=== PATIENT | female | born 1965 | race Caucasian/White ===

== ENCOUNTER → 2019-04-15 12:21 | Outpatient (CLI) | payer OTHER, SELFPAY ==
--- NOTE | 2019-04-15 12:27 | CT_ITS ---
PROCEDURE: CT ABDOMEN PELVIS W CON CLINICAL INDICATION: abdominal pain Lower abdominal pain distension and bloating COMPARISON: No exams were available for comparison TECHNIQUE: IV Contrast: 75ML OPTIRAY 350 Oral Contrast none Axial images obtained with sagittal and coronal reformats. All CT scans at the facility use one or more dose reduction, viz: automated exposure control, ma/kV adjustment per patient size (including targeted exams where dose is matched to indication, i.e. head), or iterative reconstruction technique. FINDINGS: Lower thorax: No acute finding ABDOMEN & PELVIS: The liver, gallbladder, spleen, adrenal glands, pancreas, and kidneys have an unremarkable appearance. No intestinal obstruction or free air is evident. The appendix is not clearly identified. The however, there are no secondary signs of appendicitis. There are scattered diverticula throughout the colon. There is mild haziness of the pericolic fat surrounding an inflamed diverticulum along the anterior aspect of the distal descending colon consistent with acute diverticulitis. No abscess or perforation evident. No pelvic mass or abnormal fluid collection apparent. There is a small umbilical hernia which contains fat No acute bony findings IMPRESSION: Acute diverticulitis of the distal descending colon with no evidence of abscess or perforation. Weathers colonic diverticulosis. Dictated by: Zeke Cole MD 04/15/2019 16:42 Electronically signed by Zeke Cole MD in [place] 04/15/2019 16:42
[2019-04-16 13:01] LABS: H. pylori Breath Test Negative (Negative)
== END ==
PROVIDERS: Physician Assistant; PCP Family Medicine; Visit Provider Nurse Practitioner Family
DX: R10.9 Unspecified abdominal pain (principal)
CPT/HCPCS: 74177; 83013; Q9967

== ENCOUNTER → 2019-04-18 13:38 | Outpatient (CLI) | payer OTHER, SELFPAY ==
--- NOTE | 2019-04-18 13:39 | MM_ITS ---
PROCEDURE: MM DIG SCREENING MAMM BI W/CAD Patient Age:53Y CLINICAL INDICATION: Routine Screening Mammogram no hormones, no new complaints. Noncontributory family history COMPARISON: DIG MAMMO BILAT SCREENING from 01/05/2011 DIG MAMMO BILAT SCREENING from 06/18/2013 [facility] DIG MAMM-SCREEN EMILY W/CAD from 02/14/2017 TECHNIQUE: Standard CC and MLO images were obtained. R2 CAD reviewed. FINDINGS: [id number] residual fibroglandular elements. No suspicious calcification. CAD highlights no areas of significant concern in either breast. Right breast. Stable/No significant new findings Left breast: The MLO view appears stable but on today's axillary CC view there is a focal area of density seen laterally towards axillary left breast, CC view. Would strongly favor is merely summation shadow but the focal density does warrants spot views to further evaluate to better exclude any underlying abnormality. Cc and MLO spot views along with a full full breast 90 degree on left suggested. IMPRESSION: Left breast: The area of focal density axillary tail left breast on axillary CC view- is most certainly a benign focal summation shadow.-Very unlikely to be of significance, but warrants additional spot views to further evaluate Right breast. Stable. Follow-up right mammogram 1 year BI-RAD Category: 0 Need Additional Imaging Evaluation FOLLOW-UP: IMM Immediate Follow-up Recommended Additional views left breast (A letter has been sent to the patient regarding results of the study.) Dictated by: Edin Louis MD 04/24/2019 10:16 Electronically signed by Edin Louis MD in [place] 04/24/2019 10:16
== END ==
PROVIDERS: PCP Family Medicine; Visit Provider Nurse Practitioner Obstetrics & Gynecology
DX: Z12.31 Encounter for screening mammogram for malignant neoplasm of breast (principal)
CPT/HCPCS: 77067

== ENCOUNTER → 2019-05-22 13:50 | Outpatient (CLI) | payer OTHER, SELFPAY ==
--- NOTE | 2019-05-22 13:52 | MM_ITS ---
PROCEDURE: MM DIG MAMM DX UNILAT LT CAD CLINICAL INDICATION: Routine Screening Mammogram COMPARISON: DIG MAMMO BILAT SCREENING from 06/18/2013 [facility] DIG MAMM-SCREEN EMILY W/CAD from 02/14/2017 MM DIG SCREENING MAMM BI W/CAD from 04/18/2019 TECHNIQUE: Spot-compression MLO and CC views were obtained along with a 90 degree lateral view FINDINGS: The questionable area of asymmetric density outer quadrant left breast appears to press out on the spot CC view. Spot MLO view shows no abnormality at this site. IMPRESSION: Essentially negative problem solving views with previously noted questionable asymmetric density likely a summation shadow BI-RAD Category: 1 Negative FOLLOW-UP: 1YR 1 Year Follow-up (A letter has been sent to the patient regarding results of the study.) Dictated by: Dr. Cr Galindo MD 05/24/2019 10:[address] Cr Galindo MD in [place] 05/24/2019 10:40
== END ==
PROVIDERS: PCP Family Medicine; Visit Provider Nurse Practitioner Obstetrics & Gynecology
DX: R92.8 Other abnormal and inconclusive findings on diagnostic imaging of breast (principal)
CPT/HCPCS: 77065

== ENCOUNTER → 2019-05-24 12:01 | Outpatient (CLI) | payer OTHER, SELFPAY ==
--- NOTE | 2019-05-24 12:15 | CT_ITS ---
PROCEDURE: CT ABDOMEN PELVIS WO/W CON CLINICAL INDICATION: abdominal pain lower abdominal pain, history of diverticulitis COMPARISON: CT ABDOMEN PELVIS W CON from 04/15/2019 TECHNIQUE: IV Contrast: 75ML OPTIRAY 350 Oral Contrast 20ml Gastroview Axial images obtained with sagittal and coronal reformats. All CT scans at the facility use one or more dose reduction, viz: automated exposure control, ma/kV adjustment per patient size (including targeted exams where dose is matched to indication, i.e. head), or iterative reconstruction technique. FINDINGS: LOWER THORAX: No acute finding ABDOMEN & PELVIS: The liver, spleen, adrenal glands, pancreas, gallbladder, and kidneys have an unremarkable appearance. No renal or ureteral calculi. No evidence of appendicitis. There is diverticulosis of the descending and sigmoid colon. There is moderate thickening of the mid aspect of the sigmoid colon with stranding of the pericolic fat with an inflamed diverticulum noted at this region consistent with acute diverticulitis. No evidence of abscess or perforation. There is a minimal amount of fluid in the pericolic region at this area. There stranding of the pericolic fat. No acute bony findings. IMPRESSION: Acute non complicated diverticulitis of the sigmoid colon Dictated by: Zeke Cole MD 05/24/2019 15:28 Electronically signed by Zeke Cole MD in [place] 05/24/2019 15:28
== END ==
PROVIDERS: PCP Family Medicine; Referring Provider Nurse Practitioner Obstetrics & Gynecology; Visit Provider Internal Medicine
DX: R10.9 Unspecified abdominal pain (principal)
CPT/HCPCS: 74178; Q9967

== ENCOUNTER 2024-10-09 08:14 | Day surgery (SDC) | payer OTHER, SELFPAY ==
[2024-10-09] VITALS (7 sets, daily range): BP systolic 100–127; BP diastolic 58–77; PULSE 60–80; RESP 16–18; TEMP 36.2–36.8; O2SAT 97–100; BMI 25.0
[2024-10-09] MEDS: LACTATED RINGERS 1000ML 1,000 ML 50 ML IV (09:46)
--- NOTE | 2024-10-09 09:55 | P.PNANES_ITS ---
[facility] Disclaimer: The information contained in this section may have been updated after the patient was seen, as this information can be updated by other users. Medical History History of diverticulitis No significant medical problems Surgical History H/O LEEP History of History of tonsillectomy Family History Other Family history of diabetes mellitus type II Family history of hypertension Thyroid cancer Social History (Updated 10/09/24 @ 09:35 by Verona Javier RN) Smoking Status: Current every day smoker alcohol intake: current alcohol intake frequency: holidays/special occasions only substance use type: denies use current occupational status: employed Travel in the last 8 weeks: None caffeine: Yes Have you lived/traveled outside [place] in past 30 days?: No Contact w/someone who lives/traveled outside [place] past 30 days?: No Exposure to someone with infectious disease in past 14 days?: No Do you have a fever (greater than 100.4 F or 38 C)?: No Have you tested positive for COVID-19: No Exposed to someone with COVID-19 in past 14 days?: No Do you have a sore throat?: No Do you have a cough?: No Do you have any weakness?: No Are you experiencing any nausea/vomitting?: No Do you have any diarrhea?: No Are you experiencing any unusual bleeding?: No Do you have any muscle aches/pain?: No Do you have any abdominal pain?: No Are you experiencing loss of taste or smell?: No [facility] Anesthesia Checklist Patient Identification Patient Identification: Arm Band Structural Data Admitted From: Home Planned Operative Procedure/s: Colonoscopy Consent for Planned Operative Procedure(s) Verified: Yes Verified Documents: Surgical Consent and History and Physical NPO Status Verified Time NPO: 05:45 (finished prep) Additional verifications Anesthesia Reactions: Yes (n/v) Airway Assessment Mallampati Score:: Class II C-Spine Mobility Assessed: Yes TMJ Mobility Assessed: Yes Dentition: Good Dentition Neurological Assessment Level of Consciousness: Awake, Alert and Appropriate Anesthesia Plan Anesthesia Risk discussed: Yes Anesthesia Plan: Verified ASA Class: II Anesthesia Type: MAC
--- NOTE | 2024-10-09 10:11 | P.HP_ITS ---
History of Present Illness *Admission Date: 10/09/24 *Reason for visit:: Surveillance colonoscopy *History of present illness: Mrs. Flaherty is a 58-year-old female who is here for surveillance colonoscopy secondary to a personal history of adenomatous colon polyps. The examination is deemed medically necessary for surveillance colonoscopy. The patient has been seen, interviewed and examined prior to the procedure by both myself and the anesthesia provider. [facility] Disclaimer: The information contained in this section may have been updated after the patient was seen, as this information can be updated by other users. Medical History (Updated 10/09/24 @ 10:12 by Oscar Justice II, MD) History of diverticulitis No significant medical problems Surgical History H/O LEEP History of History of tonsillectomy Family History Other Family history of diabetes mellitus type II Family history of hypertension Thyroid cancer Social History (Updated 10/09/24 @ 09:35 by Verona Javier RN) Smoking Status: Current every day smoker alcohol intake: current alcohol intake frequency: holidays/special occasions only substance use type: denies use current occupational status: employed Travel in the last 8 weeks: None caffeine: Yes Have you lived/traveled outside [place] in past 30 days?: No Contact w/someone who lives/traveled outside [place] past 30 days?: No Exposure to someone with infectious disease in past 14 days?: No Do you have a fever (greater than 100.4 F or 38 C)?: No Have you tested positive for COVID-19: No Exposed to someone with COVID-19 in past 14 days?: No Do you have a sore throat?: No Do you have a cough?: No Do you have any weakness?: No Are you experiencing any nausea/vomitting?: No Do you have any diarrhea?: No Are you experiencing any unusual bleeding?: No Do you have any muscle aches/pain?: No Do you have any abdominal pain?: No Are you experiencing loss of taste or smell?: No Other Medical History Have you received the Pneumonia Vaccine: No Review of Systems Review of Systems Review of systems (narrative): Negative *Cardiovascular Comments: Negative *Gastrointestinal Comments: Negative *Genitourinary Comments: Negative *Musculoskeletal Comments: Negative *Neurologic Comments: Negative Meds Home Medications and Allergies Home Medications ?Medication ?Instructions ?Recorded ?Confirmed ?Type sodium,potassium,mag sulfates 17.5 See Rx Instructions PO .COMPLEX 09/25/24 Rx gram-3.13 gram-1.6 gram oral soln #354 mL (Suprep Bowel Prep Kit) New Prescriptions to Start Prescriptions: Allergies Allergy/AdvReac Type Severity Reaction Status Date / Time No Known Allergies Allergy Verified 10/09/24 09:30 Exam Data for Last 24 hours Vital signs and Labs for Last 24 Hours: Temp Pulse Resp BP Pulse Ox O2 Del Method 98.2 F 75 18 122/67 99 Room Air 10/09/24 09:29 10/09/24 09:29 10/09/24 09:29 10/09/24 09:29 10/09/24 09:29 10/09/24 09:29 I & O for Last 24 hours: Intake & Output 10/06/24 10/07/24 10/08/24 10/09/24 23:59 23:59 23:59 23:59 Weight 150 lb *Routine HEENT Exam Head: Present normocephalic Eye: Present EOMI and PERRL ENT: Present mucous membranes moist *Routine Neck Exam Neck: Present supple *Routine Respiratory Exam Respiratory: Present CTA bilaterally *Routine Cardiovascular Exam Cardiovascular: Present RRR *Routine Abdominal Exam Abdominal: Present soft and normoactive bowel sounds; Absent tenderness *Routine Rectal Exam Rectal:: deferred *Routine Genitalia Exam Genitalia:: deferred *Routine Extremities Exam Extremities: Absent cyanosis, clubbing or edema *Routine Skin Exam Skin: Present warm; Absent rash *Routine Neurological Exam Neurological: Present alert and oriented X3 Assessment and Plan *Assessment and plan (1) Personal history of adenomatous and serrated colon polyps: Status: Acute Category: Medical Code(s): Z86.0101 - Personal history of adenomatous and serrated colon polyps Plan A/P: 1. Personal history of adenomatous colon polyps is the preprocedural diagnosis. The patient will be anesthetized/sedated using MAC sedation. The patient has been seen and examined. Cardiac and lung assessment prior to the examination is stable. Proceed with planned surveillance colonoscopy.
--- NOTE | 2024-10-09 10:12 | HMH.PROCNOTE ---
[facility] Procedure Note Date: 10/09/24 Time: 10:20 Procedure Note:: Colonoscopy Procedure Report: Colonoscopy with cold snare polypectomy Endoscopist: Oscar Justice II, MD Referring physician: Sukhwinder Hdez MD Date of Procedure: October 09, 2024 Equipment: Olympus 190 variable stiffness pediatric colonoscope Sedation: MAC sedation Indication: Mrs. Flaherty is a 58-year-old female who is here for follow-up surveillance colonoscopy secondary to a personal history of adenomatous colon polyps. The patient did have a colonoscopy in 2008 or 2009 in [facility] and had a single polyp (tubular adenoma) removed. Her last colonoscopy with [facility] in May 2018 revealed 2 polyps (tubular adenoma x 1/small serrated adenoma x 1) which were removed. The patient reports no abdominal pain, weight loss, change in her bowel habits or rectal bleeding. She reports no family history of colon cancer. At the time of her last colonoscopy, she did have left-sided diverticulosis. 1 or 2 years ago, she did have a bout of acute diverticulitis. She does state that her father had colon polyps. Procedure: Prior to the procedure, a history and physical exam was performed, and patient's medications and allergies were reviewed. The risks, benefits and alternatives of the sedation and procedure were discussed with the patient. All questions were answered and informed consent was obtained. The patient was brought to the procedure room. Patient identification and proposed procedure were verified by the physician and the nurse. The patient was placed in a left lateral decubitus position and the scope was passed under direct vision. Throughout the procedure, the patient's blood pressure, pulse, and oxygen saturations were monitored continuously. The colonoscopy was accomplished without difficulty. The patient tolerated the procedure well. Findings: On digital rectal examination there was normal rectal tone. There were no external hemorrhoids. The colonoscope was introduced through the anal canal to the rectum and advanced to the cecum. The ileocecal valve and appendiceal orifice were identified. The scope was advanced a short distance into the ileum which appeared grossly normal. The scope was then withdrawn into the colon. There was a 3 mm ascending colon polyp that was removed via cold snare polypectomy but not retrieved. The remaining cecum, ascending and transverse colon and mucosa were grossly normal. There were scattered extensive diverticuli throughout the descending and sigmoid colon (LEFT colon). The rectum itself was normal. Upon retroflexion within the rectum there were grade 2 internal hemorrhoids. The preparation was excellent throughout with Kempner Preparation Score of 9. The cecal time was 12 minutes. Impression: 1. Diminutive 3 mm ascending polyp 2. Extensive left-sided diverticulosis 3. Grade 2 internal hemorrhoids Plan: I would recommend repeat surveillance colonoscopy again in 7 years. I would encourage psyllium bulking fiber supplementation on a long-term daily maintenance basis.
== END 2024-10-09 11:21 | disposition home or self-care (01) ==
PROVIDERS: PCP Internal Medicine; Visit Provider Internal Medicine Gastroenterology
PROC: 0DJD8ZZ Inspection of Lower Intestinal Tract, Via Natural or Artificial Opening Endoscopic (ICD-10-PCS; CPT 45378; principal; 2024-10-09 10:00)
DX: K63.5 Polyp of colon (principal); K57.30 Diverticulosis of large intestine without perforation or abscess without bleeding; K64.1 Second degree hemorrhoids; Z86.0101 Personal history of adenomatous and serrated colon polyps
CPT/HCPCS: 45385; J7120